=== PATIENT | male | born 2000 | race African-American/Black ===

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

== ENCOUNTER 2024-10-10 22:23 | Emergency (ER) | payer MEDICAID ==
[~2024-10-10] VITALS: Ht 182.9 cm; Wt 61.0 kg
[~2024-10-10 22:23] MED LIST changes: -ACET-1988 PO; +ACET-3647 PO; +ALBU6.7H14 INH; -ALBU6.7H9 INH; +ONDA-243 PO
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
[2024-10-10] MEDS: HYDROcodone/acetaminophen 10/325mg tab PO ONE (23:42)
--- NOTE | 2024-10-10 23:44 | RADIOLOGY REPORT ---
CLINICAL INDICATION: trauma TECHNIQUE: DI HAND, COMPLETE (3VW MIN) Comparison: None FINDINGS/IMPRESSION: : Fracture of the mid diaphyseal 4th metacarpal exhibiting mild displacement and volar angulation. Mild dorsal soft tissue swelling. Soft tissues are otherwise unremarkable.
[2024-10-11] VITALS: BP 125/55; PULSE 86; RESP 16; TEMP 98.6; O2SAT 99
== END 2024-10-11 00:01 | disposition home or self-care (01) ==
LOC: ER 22:24
DX: S62.304A Unspecified fracture of fourth metacarpal bone, right hand, initial encounter for closed fracture (principal); J45.909 Unspecified asthma, uncomplicated; Z88.8 Allergy status to other drugs, medicaments and biological substances; X58.XXXA Exposure to other specified factors, initial encounter; Y93.89 Activity, other specified; Y92.89 Other specified places as the place of occurrence of the external cause; Y99.8 Other external cause status
CPT/HCPCS: 29125; 73130; 99283; A4565; A6449